=== PATIENT | female | born 2000 | race Hispanic/Latino ===

== ENCOUNTER → 2018-02-08 | Outpatient (REF) ==
[2018-02-10 14:15] LABS: HERPES ZOSTER, VARICELLA IgG 1305 index (Immune >165)
[2018-02-10 14:15] LABS: QUANTIFERON GOLD TB Negative (Negative); TB Test (QFT) Antigen 0.19 IU/mL (.); TB Test (QFT) Antigen Minus Ni 0.13 IU/mL (.); TB Test (QFT) Mitogen 6.33 IU/mL (.); TB Test (QFT) Nil 0.06 IU/mL (.)
== END ==
LOC: M LAB 16:15
DX: Z00.00 Encounter for general adult medical examination without abnormal findings (principal)

== ENCOUNTER 2018-09-04 19:27 | Emergency (ER) | payer OTHER ==
[2018-09-04 20:25] LABS: KETONE, URINE AUTO RFX NEGATIVE (NEGATIVE); LEUKOCYTE ESTERASE UR AUTO RFX 1+ (NEGATIVE); MUCUS, URINE RFX SMALL (NEGATIVE); NITRITE, URINE AUTO RFX NEGATIVE (NEGATIVE); RBC, URINE AUTO RFX 3 /HPF (0-3); SQUAM EPITHELIAL CELL UR AURFX 6 /HPF (0-6); WBC, URINE AUTO RFX 5 /HPF (0-3)
[2018-09-04 22:52] LABS: CHLAMYDIA DNA AMPLIFICATION NEGATIVE (NEGATIVE); GC DNA AMPLIFICATION NEGATIVE (NEGATIVE)
[2018-09-04 22:54] LABS: BASO % 0.3 % (0.0-1.0); EOS # 0.1 10^3/uL (0.0-0.50); EOS % 0.8 % (0.0-3.0); HEMATOCRIT 38.4 % (36.0-47.0); IMMATURE GRANULOCYTE % 0.7 % (0-3.0); LYMPH # 2.6 10^3/uL (1.5-6.5); LYMPH % 23.9 % (24.0-44.0); MEAN CORPUSCULAR HGB CONC 33.9 g/dl (32.0-36.5); MEAN CORPUSCULAR VOLUME 91.6 fl (80.0-96.0); MONO % 8.7 % (0.0-5.0); NEUTROPHILS # 7.2 10^3/uL (1.8-7.7); NEUTROPHILS % 65.6 % (36.0-66.0); PLATELET COUNT, AUTOMATED 327 10^3/uL (150-450); RED BLOOD COUNT 4.19 10^6/uL (4.00-5.40); RED CELL DISTRIBUTION WIDTH 11.9 % (11.5-14.5)
[2018-09-04 23:43] LABS: HCG, SERUM QUANTITATIVE 25249 MIU/ML
== END 2018-09-04 23:54 | disposition home or self-care (01) ==
LOC: M ED 19:27
DX: O99.89 Other specified diseases and conditions complicating pregnancy, childbirth and the puerperium (principal); R03.0 Elevated blood-pressure reading, without diagnosis of hypertension; O20.9 Hemorrhage in early pregnancy, unspecified; Z3A.01 Less than 8 weeks gestation of pregnancy
CPT/HCPCS: 76801

== ENCOUNTER 2018-09-09 14:39 | Day surgery (SDC) | payer OTHER ==
[~2018-09-09 14:39] MED LIST: KETOROLAC 60 MG/2 ML VIAL (J1885) As Ordered; LIDOCAINE 2% INJ 100 MG/5 ML SDV (FOR ANES.) As Ordered; MIDAZOLAM INJ 2 MG/2 ML VIAL (J2250) As Ordered; ONDANSETRON 4MG/2ML VIAL (J2405) As Ordered; PROPOFOL 200 MG/20 ML VIAL As Ordered; dexameTHASONE 4 MG/ML 1ML VIAL (J1100) As Ordered; fentaNYL 100 MCG/2 ML INJECTION (J3010) As Ordered
[2018-09-09] MEDS: LR 1,000 ML IV (15:00)
[2018-09-09 15:09] LABS: HEMATOCRIT 38.2 % (36.0-47.0); HEMOGLOBIN 12.8 g/dl (12.0-15.5); MEAN CORPUSCULAR HEMOGLOBIN 30.5 pg (27.0-33.0); MEAN CORPUSCULAR HGB CONC 33.5 g/dl (32.0-36.5); MEAN CORPUSCULAR VOLUME 91.2 fl (80.0-96.0); PLATELET COUNT, AUTOMATED 318 10^3/uL (150-450); RED BLOOD COUNT 4.19 10^6/uL (4.00-5.40); RED CELL DISTRIBUTION WIDTH 11.9 % (11.5-14.5); WHITE BLOOD COUNT 8.8 10^3/uL (4.0-10.0)
[2018-09-09] MEDS: LIDOCAINE 1% SDV INJ 30 ML VIAL As Ordered (18:19)
[2018-09-09] MEDS ORDERED: PROPOFOL 200 MG/20 ML VIAL As Ordered (18:25)
[2018-09-09] MEDS ORDERED: ONDANSETRON 4MG/2ML VIAL (J2405) IV (19:00)
[2018-09-09] MEDS ORDERED: PERCOCET 5MG/325MG TAB PO (19:00)
[2018-09-09] MEDS ORDERED: fentaNYL 100 MCG/2 ML INJECTION (J3010) IV (19:00)
[2018-09-10] MEDS: IBUPROFEN 800 MG TAB PO ×2 (00:29→07:54)
[2018-09-10] MEDS ORDERED: ACETAMINOPH W/CODEINE #3 TAB UD PO (00:30)
[2018-09-10] MEDS: LR 1,000 ML IV (08:46)
[2018-09-10] MEDS: ACETAMINOPH W/CODEINE #3 TAB UD PO (11:45)
== END 2018-09-10 14:25 | disposition home or self-care (01) ==
LOC: M SDC 09-10 14:25 → M PED 20:40
DX: O02.1 Missed abortion (principal)
CPT/HCPCS: 59820

== ENCOUNTER → 2018-09-09 | Outpatient (CLI) | payer OTHER ==
[2018-09-09 12:23] LABS: HCG, SERUM QUANTITATIVE 18863 MIU/ML
== END ==
LOC: M LAB 10:36
DX: O02.1 Missed abortion (principal)
CPT/HCPCS: 84702

== ENCOUNTER 2019-10-28 00:05 | Emergency (ER) | payer OTHER ==
[~2019-10-28] VITALS: Ht 162.6 cm; Wt 65.5 kg
[~2019-10-28 00:05] MED LIST changes: -KETOROLAC 60 MG/2 ML VIAL (J1885) As Ordered; -LIDOCAINE 2% INJ 100 MG/5 ML SDV (FOR ANES.) As Ordered; -MIDAZOLAM INJ 2 MG/2 ML VIAL (J2250) As Ordered; -ONDANSETRON 4MG/2ML VIAL (J2405) As Ordered; +PREN1TAB18 PO; -PROPOFOL 200 MG/20 ML VIAL As Ordered; -dexameTHASONE 4 MG/ML 1ML VIAL (J1100) As Ordered; -fentaNYL 100 MCG/2 ML INJECTION (J3010) As Ordered
[2019-10-28] MEDS ORDERED: BENA25CA4 PO (00:11)
[2019-10-28] MEDS ORDERED: FERR325T81 PO (00:11)
[2019-10-28] MEDS ORDERED: VITA500C24 PO (00:11)
[2019-10-28] MEDS ORDERED: FAMOTIDINE INJ 20MG/2ML VIAL (S0028) IVP ONE (02:15)
[2019-10-28 04:15] VITALS: BP 123/62
== END 2019-10-28 04:17 | disposition home or self-care (01) ==
LOC: M ED 00:05
DX: O99.89 Other specified diseases and conditions complicating pregnancy, childbirth and the puerperium (principal); R21 Rash and other nonspecific skin eruption; Z3A.31 31 weeks gestation of pregnancy; J30.81 Allergic rhinitis due to animal (cat) (dog) hair and dander; Z91.030 Bee allergy status